=== PATIENT | male | born 2000 | race American Indian/Alaskan Native ===

== ENCOUNTER → 2025-02-24 12:17 | Outpatient (CLI) | payer OTHER, SELFPAY ==
--- NOTE | 2025-02-24 12:22 | DI.ECHO.S_ITS ---
[facility] : : [address] : : [place] : : [id number] : : Phone: [phone] Echocardiogram Report + + :Name: MARYSOL HOWARD Study Date: 02/24/2025 Height: 71 in : :[facility] ReadingLocation: Weight: 220 lb : : Gender: Female BSA: 2.2 m2 : :: 2000 Age: 24 yrs BP: 134/90 mmHg: :Reason For Study: Chest pain : :Ordering Physician: LILIA, : :JERRY Performed By: Antony Rutledge : :Referring: JERRY RODRIGUES : + + Interpretation Summary Normal echocardiogram. Procedure: A two-dimensional transthoracic echocardiogram with color flow and Doppler was performed. The study quality was technically adequate. There is no prior echocardiogram noted for this patient. Patient Gender: Male. The patient was in normal sinus rhythm during the exam. Left Ventricle: The left ventricle is normal in size and wall thickness. Left ventricular systolic function is normal. The ejection fraction is estimated to be 60-65%. There are no focal wall motion abnormalities. Normal diastolic function. Right Ventricle: The right ventricle is normal in size and function. Atria: The left atrial size is normal. Right atrial size is normal. There is no Doppler evidence for an interatrial shunt. Mitral Valve: The mitral valve leaflets appear to open well. There is no mitral valve stenosis. There is no mitral regurgitation noted. Aortic Valve: The aortic valve is trileaflet. The aortic valve opens well. There is no aortic valve stenosis. No aortic regurgitation is present. Tricuspid Valve: The tricuspid valve leaflets are thin and pliable. There is trace tricuspid regurgitation. Pulmonary artery pressures cannot be estimated because of the lack of a measurable TR jet velocity but the IVC suggests a CVP of around 3 mmHg. Pulmonic Valve: The pulmonic valve is not well seen, but is grossly normal. There is a trace or physiologic amount of pulmonic regurgitation. Great Vessels: The aortic root is normal size. The ascending aorta is normal in size. The aortic arch could not be visualized. The pulmonary artery is normal size. The IVC is of normal diameter and collapses greater than 50% with a sniff. This suggests a low right atrial pressure of 3 mm Hg. Pericardium/ Pleura There is no pericardial effusion. MMode/2D Measurements & Calculations LVIDd: 4.6 cm LVOT diam: 2.2 cm LVIDs: 2.9 cm Ao root diam: 3.1 cm FS: 37.2 % asc Aorta Diam: 2.6 cm IVSd: 0.87 cm LVPWd: 0.89 cm LV lombardi. diameter/BSA (cm/m^2): 2.1 LV sys. diameter/BSA (cm/m^2): 1.3 LA A2 area: 13.8 cm2 IVC diam: 1.7 cm LA A4 area: 15.7 cm2 LA length (vol): 5.5 cm LA vol: 33.4 ml LA vol index: 15.2 ml/m2 RVD1 (basal): 3.5 cm RVD2 (mid): 3.1 cm TAPSE: 1.8 cm Doppler Measurements & Calculations Ao V2 max: 106.6 cm/sec LVOT Max Byron: 100.7 cm/sec Ao V2 mean: 73.6 cm/sec LV V1 max P.1 mmHg Ao max P.5 mmHg LV V1 VTI: 16.8 cm Ao mean P.5 mmHg LOIDA(I,D): 3.5 cm2 Ao V2 VTI: 18.3 cm LOIDA(V,D): 3.6 cm2 sev ratio: 0.92 LOIDA indexed to BSA (cm^2/m^2): 1.6 MV E max byron: 55.4 cm/sec PA V2 max: 96.1 cm/sec MV A max byron: 43.6 cm/sec PA V2 mean: 64.5 cm/sec MV E/A: 1.3 PA mean P.9 mmHg Med Peak E' Byron: 9.9 cm/sec PA pr(Accel): 14.8 mmHg E/E' med: 5.6 Lat Peak E' Byron: 17.4 cm/sec E/E' lat: 3.2 E/e' average: 4.4 MV dec time: 0.19 sec SV(LVOT): 64.2 ml Reading Physician:02:42 PM
== END ==
PROVIDERS: Visit Provider Chiropractor
DX: R07.9 Chest pain, unspecified (principal)
CPT/HCPCS: 93306